=== PATIENT | male | born 1955 | race Caucasian/White ===

== ENCOUNTER 2018-12-16 07:52 | Inpatient (IN) | payer OTHER ==
[~2018-12-16 07:52] MED LIST: TRANEXAMIC ACID 1,000 MG in NS 100 ML IV ONE
[2018-12-16] MEDS ORDERED: morphINE PF 0.2 MG in SYRINGE INTRATHECAL 1 SYR IT ONE (08:05)
[2018-12-16] MEDS ORDERED: GABAPENTIN 300 MG CAP PO ONE (08:05)
[2018-12-16] MEDS ORDERED: ACETAMINOPHEN 500 MG TAB PO ONE (08:05)
[2018-12-16] MEDS ORDERED: fentaNYL 50 MCG in SYRINGE INTRATHECAL 1 SYR IT ONE (08:05)
[2018-12-16] MEDS ORDERED: ceFAZolin 2 GM/DEXTROSE 100 ML IV ONE (08:05)
[2018-12-16] MEDS ORDERED: LR 1,000 ML IV ONE (08:07)
--- NOTE | 2018-12-16 09:08 | PDHPUP ---
History & Physical Update H&P update statement: This history and physical update is based on an assessment of the patient which was completed after admission or registration (within 24 hours), but prior to the surgery/procedure. H&P update: no change in patient's condition since H&P completed
[2018-12-16] MEDS ORDERED: CHLORHEXIDINE GLUC HIBICLENS 118 ML BTL TP ONE (09:32)
[2018-12-16] MEDS ORDERED: THROMBIN (BOVINE) 5,000 UNIT VIAL TP ONE (09:33)
[2018-12-16] MEDS ORDERED: BACITRACIN 50,000 UNITS/10 ML SYR IRR ONE (09:33)
[2018-12-16] MEDS ORDERED: BUPIVACAINE/EPI 0.25% 30 ML SDV ONE (09:33)
[2018-12-16] MEDS ORDERED: BUPIVACAINE 0.25% 30 ML SDV ONE (09:33)
[2018-12-16] MEDS ORDERED: MIDAZOLAM 2 MG/2 ML VIAL ONE (09:44)
[2018-12-16] MEDS ORDERED: MIDAZOLAM 2 MG/2 ML VIAL IVP ONE (09:44)
--- NOTE | 2018-12-16 09:44 | PDANEPAE ---
ANE History of Present Illness chronic lower back pain, here for L3-4 TLIF ANE Past Medical History - Cardiovascular History Hx Hypertension: No Hx Arrhythmias: No Hx Chest Pain: No Hx Coronary Artery / Peripheral Vascular Disease: No Hx CHF / Valvular Disease: No Hx Palpitations: No - Pulmonary History Hx COPD: No Hx Asthma/Reactive Airway Disease: No Hx Recent Upper Respiratory Infection: No Hx Oxygen in Use at Home: No Hx Sleep Apnea: No Sleep Apnea Screening Result - Last Documented: Negative - Neurologic History Hx Cerebrovascular Accident: No Hx Seizures: No Hx Dementia: No - Endocrine History Hx Diabetes: No - Renal History Hx Renal Disorders: No - Liver History Hx Hepatic Disorders: No - Neurological & Psychiatric Hx Hx Neurological and Psychiatric Disorders: No - Cancer History Hx Cancer: No - Congenital Disorder History Hx Congenital Disorders: No - GI History Hx Gastrointestinal Disorders: No - Other Health History Other Health History: ECZEMA IN PAST - Chronic Pain History Chronic Pain: Yes (LOW STIFFNESS, PAIN R LEG) - Surgical History Prior Surgeries: RECENT EPIDURAL INJ. L KNEE OPEN REPAIR. L KNEE ACL REPAIR. R KNEE SCOPE. APPENDECTOMY. LUMBAR SURG X4 ANE Review of Systems Review of Systems: - Exercise capacity METS (RN): 4 METS ANE Patient History - Allergies Allergies/Adverse Reactions: No Known Allergies Allergy (Verified 12/08/18 10:40) - Home Medications Home Medications: Ascorbic Acid [Vitamin C 500 mg (*)] 500 mg PO DAILY 12/08/18 [Last Taken 1 Month Ago ~11/15/18] Cholecalciferol Vit D3 [Vitamin D3 (*)] 1,000 units PO DAILY 12/08/18 [Last Taken 1 Month Ago ~11/15/18] Cyanocobalamin [Vitamin B12 (*)] 1,000 mcg PO DAILY 12/08/18 [Last Taken 1 Month Ago ~11/15/18] Cyclobenzaprine [Flexeril 10 MG (*)] 10 mg PO TID PRN 12/08/18 [Last Taken 3 Weeks Ago ~11/25/18] Glucosamine Sulfate [Glucosamine Sulfate 500 MG (*)] 500 mg PO DAILY 12/08/18 [ Last Taken 1 Month Ago ~11/15/18] Herbals/Supplements -Info Only 1 ea PO DAILY 12/08/18 [Last Taken 1 Month Ago ~ 11/15/18] Multivitamins [Multivitamin (*)] 1 each PO DAILY 12/08/18 [Last Taken 1 Week Ago ~12/09/18] Naproxen Sodium [Aleve 220 MG (*)] 220 mg PO BID PRN 12/08/18 [Last Taken 1 Week Ago ~12/09/18] oxyCODONE IR [Oxycodone Ir (*)] 15 mg PO Q4HRS PRN 12/08/18 [Last Taken 3 Weeks Ago ~11/25/18] - NPO status NPO Since - Liquids (Date): 12/15/18 NPO Since - Liquids (Time): 19:00 NPO Since - Solids (Date): 12/15/18 NPO Since - Solids (Time): 19:00 - Smoking Hx Smoking Status: Former smoker - Family Anes Hx Family Hx Anesthesia Complications: NEG ANE Labs/Vital Signs - Vital Signs Blood Pressure: 135/87 Heart Rate: 74 Respiratory Rate: 18 O2 Sat (%): 98 Height: 198.12 cm Weight: 102.058 kg ANE Physical Exam - Airway Neck exam: FROM Mallampati Score: Class 2 Mouth exam: normal dental/mouth exam - Pulmonary Pulmonary: no respiratory distress, no rales or rhonchi - Cardiovascular Cardiovascular: regular rate and rhythym, no murmur, rub, or gallop - ASA Status ASA Status: II ANE Anesthesia Plan Anesthesia Plan: general endotracheal anesthesia Total IV Anesthesia: Yes
--- NOTE | 2018-12-16 09:45 | POSTOPPROG ---
Post Op Note Date of Operation: 12/16/18 Surgeon: Conrado Gray [employer] Operator: Conrado Gray PAC Anesthesiologist: Tressa Santa MD Anesthesia: GET(General Endotracheal) Pre-op Diagnosis: Lumbar DJD, HNP L3/4 Post-op Diagnosis: Same Indication: low back and right leg pain, bilateral anterior thigh tingling Procedure: L3/4 TLIF Findings: Severe DJD, HNP Inf/Abcess present in the surg proc area at time of surgery?: No EBL: 100-500 Complications: none Drains: Kel Staples (to bulb suction) Specimen(s): none
--- NOTE | 2018-12-16 09:46 | SOAPPROG ---
SOAP Progress Note Assessment/Plan: POST OP CHECK: Assessment: doing well s/p L3/4 TLIF Plan: CPM in PACU ALEX to bulb suction transfer to floor per protocol 12/16/18 09:45 12/16/18 13:10 Subjective: eyes closed, opens to voice stimulation. He is comfortable. Objective: Vital Signs Temp Pulse Resp BP Pulse Ox 35.9 C L 74 18 135/87 H 98 12/16/18 08:10 12/16/18 09:44 12/16/18 09:44 12/16/18 09:44 12/16/18 09:44 Vitals: HR: 59 BP: 103/66 O2: 99% Neuro: MERCEDES, sens +LT FC x 4 ICD10 Worksheet Patient Problems: Problems Problem Status Onset Lumbar degenerative disc disease Acute Radiculopathy of leg Acute Radiculopathy of lumbar region Acute - ICD10 Problem Qualifiers (1) Lumbar degenerative disc disease (2) Radiculopathy of lumbar region (3) Radiculopathy of leg
[2018-12-16] MEDS ORDERED: ROCURONIUM 50 MG/5 ML VIAL ONE (09:47)
[2018-12-16] MEDS ORDERED: LIDOCAINE 2% 100 MG/5 ML SYR ONE (09:47)
[2018-12-16] MEDS ORDERED: DEXAMETHASONE 4 MG/ML VIAL ONE (09:47)
[2018-12-16] MEDS ORDERED: ONDANSETRON 4 MG/2 ML VIAL ONE (09:47)
[2018-12-16] MEDS ORDERED: PROPOFOL 200 MG/20 ML VIAL ONE (09:48)
[2018-12-16] MEDS ORDERED: PROPOFOL/EMULSION 500 MG/50 ML BOTTLE IV ONE ×4 (09:48→10:45)
[2018-12-16] MEDS ORDERED: REMIFENTANIL HCL 1 MG VIAL ONE ×2 (09:48)
[2018-12-16] MEDS ORDERED: HYDROmorphONE/DILAUDID 2 MG/ML INJ ONE (11:56)
[2018-12-16] MEDS ORDERED: DIAZEPAM 5 MG/ML 1 ML SYR IVP PRN (12:27)
[2018-12-16] MEDS ORDERED: HYDROmorphONE/DILAUDID 1 MG/ML INJ IVP PRN (12:27)
[2018-12-16] MEDS ORDERED: MEPERIDINE 25 MG/0.5 ML AMP IVP PRN (12:27)
[2018-12-16] MEDS ORDERED: fentaNYL 100 MCG/2 ML INJ IVP PRN (12:27)
[2018-12-16] MEDS ORDERED: LR 500 ML IV PRN (12:27)
[2018-12-16] MEDS ORDERED: PROMETHAZINE HCL 25 MG/ML INJ IVP PRN (12:27)
[2018-12-16] MEDS ORDERED: oxyCODONE IR 5 MG TAB PO PRN (12:27)
[2018-12-16] MEDS ORDERED: NALOXONE HCL 0.4 MG/ML INJ IVP PRN (12:27)
[2018-12-16] MEDS ORDERED: MAGNESIUM HYDROXIDE 30 ML UDCUP PO PRN (12:51)
[2018-12-16] MEDS ORDERED: BISACODYL 10 MG SUPP PR PRN (12:51)
[2018-12-16] MEDS ORDERED: ONDANSETRON 4 MG/2 ML VIAL IVP PRN (12:51)
[2018-12-16] MEDS ORDERED: diphenhydrAMINE 25 MG CAP PO PRN (12:51)
[2018-12-16] MEDS ORDERED: LACTULOSE 20 GM/30 ML UDCUP PO PRN (12:51)
[2018-12-16] MEDS ORDERED: ONDANSETRON DISINTEGRATING 4 MG TAB PO PRN (12:51)
--- NOTE | 2018-12-16 13:13 | POSTANESTH ---
Post Anesthetic Evaluation Cardiovascular Status: Normal, Stable Respiratory Status: Normal, Stable Level of Consciousness/Mental Status: Can Participate in Eval, Moderately Sleepy Pain Control: Adequate, Prn Tx Ordered Nausea/Vomiting Control: Adequate, Prn Tx Ordered Complications Possibly Related to Anesthesia: None Noted
--- NOTE | 2018-12-16 13:42 | PDMN ---
Medical Necessity Medical necessity: MCG; S820 lumbar fusion INPT only OP: L3/4 TLIF. JEANE FOR INPT REF#[id number]
[2018-12-16] MEDS: GABAPENTIN 300 MG CAP PO SCH ×2 (15:23→21:08)
[2018-12-16] MEDS: ACETAMINOPHEN 500 MG TAB PO SCH ×2 (15:23→21:08)
[2018-12-16] MEDS: POLYETHYLENE GLYCOL 3350 17 GM PKT PO SCH ×2 (15:23→21:09)
--- NOTE | 2018-12-16 17:39 | GOP ---
[f rep st] OPERATIVE REPORT DATE OF OPERATION: 12/16/2018 SURGEON: Iam Martinez MD NEUROSURGEON: Iam Martinez MD. INSTRUMENT REPAIRER HELPER: MAUREEN Melendez. ANESTHESIA: General endotracheal. PREOPERATIVE DIAGNOSIS: 1. Severe L3-4 degenerative joint disease and critical central canal and neural foraminal impingemen t. 2. Progressive right lower extremity weakness. 3. Failed conservative care. POSTOPERATIVE DIAGNOSIS: 1. Severe L3-4 degenerative joint disease and critical central canal and neural foraminal impingemen t. 2. Progressive right lower extremity weakness. 3. Failed conservative care. PROCEDURE PERFORMED: 1. Mini open exposure for right-sided far lateral transpedicular decompression at the L3-4 level wit h L3-4 posterior nonsegmental (pedicle screw) fixation and posterolateral fusion with local autograft and bone morphogenic protein. 2. L3-4 posterior/transforaminal lumbar interbody fusion with 2 structural PEEK interbody spacers wi th local autograft and bone morphogenic protein. 3. Use of intraoperative microscopy, fluoroscopy, and computer volumetric stereotactic navigation wi intraoperative neurophysiologic testing. 4. Injection of intrathecal narcotic analgesics for postoperative pain control. FINDINGS: ESTIMATED BLOOD LOSS: 75 cc. INDICATIONS: The patient is a 63-year-old male with intractable back pain and right lower extremity radicular symptoms including progressive weakness. He has failed extensive conservative care and pre sents now for surgical decompression and stabilization through a mini open approach. DESCRIPTION OF PROCEDURE: After informed consent was obtained, the patient was taken to the operatin g room and placed in the prone position on the Kel table. The thoracolumbosacral areas were prep ped and draped in a sterile fashion and after fluoroscopic localization of the correct levels, the marvin bcutaneous and intramuscular tissues were infiltrated with local anesthesia. A midline linear incisi on was then created over the L3-4 spinous processes. This was carried down to the fascial layer, whi ch was incised using the monopolar electrocautery and carried in a subperiosteal plane along the spin ous processes and out the lamina bilaterally. Intraoperative fluoroscopy was again utilized to verif y the correct levels. Note that patient had a laminectomy defect at the L4 level and this made the e xposure much more difficult with an extensive amount of scar tissue and making it an effort to avoid a CSF leak. Eventually, we did carefully dissect out the anatomy and bring in the microscope and a r ight-sided far lateral transpedicular decompression was performed at the L3-4 level with complete unr oofing of the facet joint and neural foramen at L3 and L4 levels of the central canal. There were mu ltiple large pieces of free fragment disk herniation that were carefully removed. Following this, th e Stealth Neuronavigational System was brought in and pedicle screws were placed at L3 and L4 bilater ally. Each individual screw was tested neurophysiologically with monopolar electrostimulation and in terpretation of the potentials by the surgeon. Following this, short rods were placed and secured un fred a slight amount of distraction, during which time complete diskectomies were performed with prepa ration of the endplates and placement of 2 structural PEEK interbody spacers with local autograft and bone morphogenic protein for an L3-4 posterior/transforaminal lumbar interbody fusion. The screw an d zandra system were then placed in the site by compression in order to facilitate bony union and to min imize the potential for posterior graft migration. Following this, the remaining lamina and facet anibal int on the left side were extensively decorticated and the residual local autograft along with bone m orphogenic protein was placed out laterally for a posterolateral fusion at the L3-4 level. 200 mcg o f Duramorph along with 50 mcg of fentanyl were injected intrathecally for postoperative pain control. A drain was placed in the subcutaneous and intramuscular tissues where we infiltrated with local an esthesia and the wound was closed in a layered fashion using interrupted Vicryl sutures, followed by Steri-Strips on the skin. COMPLICATIONS: None. DISPOSITION: The patient was extubated and transferred to the recovery room in stable condition. /[id number]/MODL
[2018-12-16] MEDS: ceFAZolin 2 GM/DEXTROSE 100 ML IV SCH (18:08)
[2018-12-16] MEDS ORDERED: NS BOLUS 500 ML (Wide open) IV ONE (20:30)
[2018-12-16] MEDS ORDERED: NS 1,000 ML IV SCH (20:30)
[2018-12-16] MEDS: SENNOSIDES/DOCUSATE SODIUM TAB PO SCH (21:08)
[2018-12-16] MEDS: FAMOTIDINE 20 MG TAB PO SCH (21:08)
[2018-12-17] MEDS: ceFAZolin 2 GM/DEXTROSE 100 ML IV SCH (02:21)
[2018-12-17] MEDS: METHOCARBAMOL 750 MG TAB PO PRN ×3 (03:53→15:26)
[2018-12-17 04:52] LABS: PLATELET COUNT 202 10^3/uL (150-400)
[2018-12-17] MEDS: GABAPENTIN 300 MG CAP PO SCH ×2 (06:08→15:26)
[2018-12-17] MEDS: ACETAMINOPHEN 500 MG TAB PO SCH ×3 (06:09→15:26)
--- NOTE | 2018-12-17 07:46 | SOAPPROG ---
SOAP Progress Note Assessment/Plan: Assessment: POD #1 doing well s/p L3/4 TLIF. Potassium elevated. will repeat at 1200 Plan: Continue Young drain Lumbar xrays this AM PT/OT in [facility] Repeat K 12/17/18 07:44 Subjective: awake, alert, pain controlled overnight and this AM. Denies any new numbness, tingling or weakness Objective: Vital Signs Temp Pulse Resp BP Pulse Ox 36.9 C 64 16 115/79 92 12/17/18 07:31 12/17/18 07:31 12/17/18 07:31 12/17/18 07:31 12/17/18 07:31 Laboratory Results 12/17/18 04:15 12/17/18 04:15 12/16/18 12/17/18 12/18/18 05:59 05:59 05:59 Intake Total 1250 880 Output Total 2415 Balance -1165 880 Neuro: MERCEDES, Sens+LT. Chronic Left DF/EHL weakness (unchanged) Dressing: CDI YOUNG: 265ml ICD10 Worksheet Patient Problems: Problems Problem Status Onset Lumbar degenerative disc disease Acute Radiculopathy of leg Acute Radiculopathy of lumbar region Acute - ICD10 Problem Qualifiers (1) Lumbar degenerative disc disease (2) Radiculopathy of lumbar region (3) Radiculopathy of leg
[2018-12-17] MEDS: SENNOSIDES/DOCUSATE SODIUM TAB PO SCH (08:48)
[2018-12-17] MEDS: POLYETHYLENE GLYCOL 3350 17 GM PKT PO SCH ×2 (08:50→17:47)
[2018-12-17] MEDS: FAMOTIDINE 20 MG TAB PO SCH (08:51)
[2018-12-17] MEDS ORDERED: CYANO/VITAMIN B12 1000 MCG TAB PO SCH (09:00)
[2018-12-17] MEDS ORDERED: ENOXAPARIN 40 MG/0.4 ML SYR SC SCH (09:00)
[2018-12-17] MEDS ORDERED: ASCORBIC ACID 500 MG TAB PO SCH (09:00)
[2018-12-17] MEDS ORDERED: MULTIVITAMINS 1 EACH TAB PO SCH (09:00)
[2018-12-17] MEDS ORDERED: CHOLECALCIFEROL VIT D3 1,000 UNITS TAB PO SCH (09:00)
[2018-12-17] MEDS ORDERED: GLUCOSAMINE SULF 500 MG CAP PO SCH (09:00)
[2018-12-17 11:36] VITALS: BP 132/79
--- NOTE | 2018-12-17 13:56 | ASMTCMCOM ---
CM Note CM Note Notes: Pt had planned surgery for DDD, radiculopathy. Pt resides with spouse who is an RN and has a dghtr local. OT rec home, PT rec outpatient. Anticipate pt will d/c when medically stable, no CM d/c needs identified. CM available for changes/needs. Date Signed: 12/17/2018 01:55 PM Electronically Signed By:LISET Bartholomew
== END 2018-12-17 16:04 | disposition home or self-care (01) | DRG 455 ==
LOC: F3N 07:52
PROVIDERS: ADMIT Neurological Surgery; ATTEND Neurological Surgery
PROC: 8E0WXBZ Computer Assisted Procedure of Trunk Region (ICD-10-PCS; principal; 2018-12-16 09:30)
PROC: 0SG0071 Fusion of Lumbar Vertebral Joint with Autologous Tissue Substitute, Posterior Approach, Posterior Column, Open Approach (ICD-10-PCS; principal; 2018-12-16 09:30)
PROC: 4A1004G Monitoring of Central Nervous Electrical Activity, Intraoperative, Open Approach (ICD-10-PCS; principal; 2018-12-16 09:30)
PROC: 0ST20ZZ Resection of Lumbar Vertebral Disc, Open Approach (ICD-10-PCS; principal; 2018-12-16 09:30)
PROC: 0SG03AJ Fusion of Lumbar Vertebral Joint with Interbody Fusion Device, Posterior Approach, Anterior Column, Percutaneous Approach (ICD-10-PCS; principal; 2018-12-16 09:30)
PROC: 00NY0ZZ Release Lumbar Spinal Cord, Open Approach (ICD-10-PCS; principal; 2018-12-16 09:30)
DX: M51.16 Intervertebral disc disorders with radiculopathy, lumbar region (principal); M51.36 Other intervertebral disc degeneration, lumbar region
CPT/HCPCS: 97161-GP; 97166-GO; 97535-GO; C1713; J0690; J1100; J1170; J1650; J2001; J2250; J2270; J2274; J2405; J2704; J3010